=== PATIENT | female | born 1975 | race Caucasian/White ===

== ENCOUNTER 2021-04-29 06:23 | Emergency (ER) | payer OTHER ==
[~2021-04-29] VITALS: Ht 170.2 cm; Wt 108.9 kg
[~2021-04-29 06:23] MED LIST: CLON2; HYDCHL25 PO; HYDCHL50; LORA2 PO; METH40; METH40 PO; OXCA300 PO; WARF10; WARF10 PO
[2021-04-29] MEDS ORDERED: PROM25 (06:55)
[2021-04-29] MEDS ORDERED: TIZA4 (06:55)
[2021-04-29] MEDS ORDERED: XARELTO20 MG PO (06:55)
[2021-04-29] MEDS ORDERED: OMEP20ER (06:55)
[2021-04-29] MEDS ORDERED: GABA300 PO (06:55)
== END 2021-04-29 07:36 | disposition home or self-care (01) ==
LOC: ER 06:23
DX: D68.2 Hereditary deficiency of other clotting factors (principal); Z76.0 Encounter for issue of repeat prescription
CPT/HCPCS: 99281; A9270

== ENCOUNTER 2025-02-25 10:51 | Day surgery (SDC) | payer OTHER ==
[~2025-02-25] VITALS: Ht 167.6 cm; Wt 204.6 kg
[~2025-02-25 10:51] MED LIST changes: +AMOCLA875 PO; +GABA300 PO; +OMEP20ER; +PROM25; +SEROQUEL25 MG PO; +TIZA4; +Ultram50 MG PO; +XARELTO20 MG PO
[2025-02-25 13:15] VITALS: BP 108/77
== END 2025-02-25 13:05 | disposition home or self-care (01) ==
LOC: ORSCSDS 10:51
PROVIDERS: Specialist
PROC: 0DB58ZX Excision of Esophagus, Via Natural or Artificial Opening Endoscopic, Diagnostic (ICD-10-PCS; principal; 2025-02-25 12:30)
PROC: 0DB68ZX Excision of Stomach, Via Natural or Artificial Opening Endoscopic, Diagnostic (ICD-10-PCS; principal; 2025-02-25 12:30)
DX: K21.9 Gastro-esophageal reflux disease without esophagitis (principal); K44.9 Diaphragmatic hernia without obstruction or gangrene; R10.13 Epigastric pain; R11.2 Nausea with vomiting, unspecified; D68.51 Activated protein C resistance; Z86.711 Personal history of pulmonary embolism; R73.03 Prediabetes; F17.210 Nicotine dependence, cigarettes, uncomplicated; Z79.899 Other long term (current) drug therapy
CPT/HCPCS: 88305; 88342; J2704; J7120